=== PATIENT | male | born 1985 | race Caucasian/White ===

== ENCOUNTER 2017-11-17 04:24 | Emergency (ER) | payer SELFPAY ==
[~2017-11-17] VITALS: Ht 175.3 cm; Wt 65.0 kg
[2017-11-17 04:26] VITALS: BP 121/78
[2017-11-17] MEDS ORDERED: KETOROLAC 30 MG/1 ML ONE (05:23)
[2017-11-17] MEDS ORDERED: KETOROLAC 30 MG/1 ML IM ONE (05:30)
== END 2017-11-17 05:33 | disposition home or self-care (01) ==
LOC: ED 05:20
DX: K08.89 Other specified disorders of teeth and supporting structures (principal); Z59.0 Homelessness
CPT/HCPCS: 96372; 99283; J1885

== ENCOUNTER 2017-11-29 15:02 | Emergency (ER) | payer SELFPAY ==
[~2017-11-29] VITALS: Ht 175.3 cm; Wt 64.8 kg
[2017-11-29 15:03] VITALS: BP 124/71
== END 2017-11-29 15:33 | disposition home or self-care (01) ==
LOC: ED 15:20
DX: S50.861A Insect bite (nonvenomous) of right forearm, initial encounter (principal); W57.XXXA Bitten or stung by nonvenomous insect and other nonvenomous arthropods, initial encounter; Y93.J2 Activity, drum and other percussion instrument playing; Y92.488 Other paved roadways as the place of occurrence of the external cause; Y99.8 Other external cause status
CPT/HCPCS: 99281

== ENCOUNTER 2017-12-09 23:45 | Emergency (ER) | payer SELFPAY ==
[~2017-12-09] VITALS: Ht 172.7 cm; Wt 65.5 kg
[2017-12-09 23:48] VITALS: BP 119/82
[2017-12-10 01:12] LABS: AMPHETAMINE SCREEN, URINE Negative (Negative); BARBITURATE SCREEN, URINE Negative (Negative); BENZODIAZEPINE SCREEN, URINE Negative (Negative); CANNABINOID SCREEN, URINE Positive (Negative); COCAINE SCREEN, URINE Negative (Negative); METHADONE SCREEN, URINE Negative (Negative); OPIATE SCREEN, URINE Negative (Negative)
[2017-12-10 02:00] LABS: ALANINE AMINOTRANSFERASE 27 U/L (12-78); ALBUMIN 3.7 g/dL (3.4-5.0); ANION GAP 5 mmol/L (5-15); CALCIUM 8.6 mg/dL (8.5-10.1); CHLORIDE 111 mmol/L (98-107); SALICYLATE LEVEL 2.3 mg/dL (2.8-20.0)
[2017-12-10 02:02] LABS: ALKALINE PHOSPHATASE 70 U/L (45-117); BILIRUBIN,TOTAL 0.3 mg/dL (0.2-1.0); TOTAL PROTEIN 6.9 g/dL (6.4-8.2)
[2017-12-10 02:05] LABS: BASOPHILS # (AUTO) 0.04 x10^3/uL (0-0.1); BASOPHILS % (AUTO) 0 % (0-1); EOSINOPHILS # (AUTO) 0.24 x10^3/uL (0-0.4); EOSINOPHILS % (AUTO) 2 % (1-7); LYMPHOCYTES % (AUTO) 37 % (22-44); MD NO; MEAN CORPUSCULAR HEMOGLOBIN 30.8 pg (27.5-34.5); MEAN CORPUSCULAR HGB CONC 33.8 g/dL (33.2-36.2); MEAN PLATELET VOLUME 7.6 fL (7.4-10.4); MONOCYTES % (AUTO) 10 % (2-9); NEUTROPHILS # (AUTO) 5.24 x10^3/uL (1.8-6.8); NEUTROPHILS % (AUTO) 51 % (42-75); PLATELET COUNT 272 x10^3/uL (130-400); RED CELL DISTRIBUTION WIDTH 13.6 % (9.4-14.8)
[2017-12-10 02:09] LABS: ACETAMINOPHEN < 2 mcg/mL (10-30)
== END 2017-12-10 06:06 | disposition home or self-care (01) ==
LOC: ED 23:59
DX: F33.9 Major depressive disorder, recurrent, unspecified (principal); F60.1 Schizoid personality disorder; Z87.891 Personal history of nicotine dependence
CPT/HCPCS: 36415; 80053; 80307; 80329; 85025; 99284; G0480

== ENCOUNTER 2017-12-17 07:19 | Emergency (ER) | payer OTHER ==
[~2017-12-17] VITALS: Ht 174 cm; Wt 64.8 kg
[2017-12-17 07:21] VITALS: BP 137/74
[2017-12-17] MEDS ORDERED: HYDROcodone/APAP 5/325 TABLET PO ONE (08:00)
[2017-12-17] MEDS ORDERED: CEPHALEXIN 500 MG CAPSULE PO ONE (08:30)
[2017-12-17] MEDS ORDERED: CEPHALEXIN 500 MG CAPSULE ONE (08:32)
== END 2017-12-17 08:35 | disposition home or self-care (01) ==
LOC: ED 08:29
DX: H60.91 Unspecified otitis externa, right ear (principal); L03.811 Cellulitis of head [any part, except face]; F17.200 Nicotine dependence, unspecified, uncomplicated
CPT/HCPCS: 70480; 99284